=== PATIENT | female | born 1965 | race African-American/Black ===

== ENCOUNTER 2022-05-28 10:42 | Outpatient (CLI) | payer OTHER, SELFPAY ==
--- NOTE | ~2022-05-28 | US_ITS ---
EXAMINATION:US venous doppler LE LT INDICATION:Left leg swelling TECHNIQUE: Multiple grayscale, color flow and Doppler images of the left lower extremity deep venous systems were obtained and reviewed. COMPARISON:No prior studies for comparison. FINDINGS: The common femoral, superficial femoral and popliteal veins demonstrate normal respiratory variation, augmentation and compressibility. Color flow is also seen within the posterior tibial, pe roneal, greater saphenous and profunda veins. IMPRESSION: 1: No lower extremity deep venous thrombosis. Reviewed, dictated and finalized at location B.
== END 2022-05-28 10:43 | disposition home or self-care (01) ==
PROVIDERS: Visit Provider Orthopaedic Surgery
DX: R60.0 Localized edema (principal)
CPT/HCPCS: 93971

== ENCOUNTER 2022-07-28 12:02 | Outpatient (CLI) | payer OTHER, SELFPAY ==
--- NOTE | ~2022-07-28 | CT_ITS ---
Noncontrast CT scan of the right ankle CLINICAL HISTORY: Fracture TECHNIQUE: Axial noncontrast imaging of the right ankle was performed. Sagittal and coronal reformatt ed images were constructed. Dose reduction technique was used on this scan by utilizing automated exp osure control and iterative reconstruction technique. FINDINGS: There is an oblique, traumatic, minimally displaced fracture of the lateral malleolus, at a nd just proximal to level the ankle mortise. There is also an oblique, intra-articular, mildly displa sandor and mildly comminuted fracture of the lateral corner of the distal tibial plafond (coronal image 60, axial image 34 for example). This fracture fragment is displaced by approximately 6 mm. No other fracture identified. Alignment at the ankle mortise is essentially anatomic. Remaining visua lized joint spaces are also unremarkable. There is subcutaneous soft tissue edema about the ankle. No fluid collection or soft tissue mass evid ent. IMPRESSION: Oblique, traumatic, minimally displaced fracture of the lateral malleolus, as detailed above. Oblique, intra-articular, mildly displaced and comminuted fracture of the lateral corner of the dista l tibial plafond, as detailed above. Reviewed, dictated and finalized at location M. CIANRY TEACHER IMPRESSION: Oblique, traumatic, minimally displaced fracture of the lateral malleolus, as d etailed above. Oblique, intra-articular, mildly displaced and comminuted fracture of the later al corner of the distal tibial plafond, as detailed above.
== END 2022-07-28 12:03 | disposition home or self-care (01) ==
PROVIDERS: Visit Provider Orthopaedic Surgery
DX: S82.61XA Displaced fracture of lateral malleolus of right fibula, initial encounter for closed fracture (principal); S82.391A Other fracture of lower end of right tibia, initial encounter for closed fracture
CPT/HCPCS: 73700

== ENCOUNTER 2022-07-28 12:53 | Outpatient (CLI) | payer OTHER, SELFPAY ==
[2022-07-28 14:24] LABS: Hematocrit 41.9 % (37.0-47.0); Hemoglobin 13.4 g/dL (12.0-15.0)
== END 2022-07-28 12:54 | disposition home or self-care (01) ==
PROVIDERS: Anesthesiology; Visit Provider Orthopaedic Surgery
DX: S82.891A Other fracture of right lower leg, initial encounter for closed fracture (principal); D64.9 Anemia, unspecified
CPT/HCPCS: 36415; 85014; 85018; 87081

== ENCOUNTER 2022-07-30 02:29 | Day surgery (SDC) | payer OTHER, SELFPAY ==
--- NOTE | 2022-07-28 11:53 | P.HP_ITS ---
H&P: HPI History of Present Illness Date/Time: 07/28/22 11:53 Chief Complaint: Right ankle fracture Narrative: 56-year-old female who presents today for ORIF of her right ankle fracture. Patient fell at home when she became dizzy. She did not lose consciousness. She fell and had immediate pain in the ankle. She went to emergency room and had x-rays done on 07/19. They showed a mildly displaced South B fracture as well as a displaced fracture of Chaputs tubercle. Patient was seen in the office on 07/28, stress view was done of the ankle which shows significant widening of the medial clear space. Due to the widening this is an unstable fracture and it was recommended she undergo ORIF of the ankle and presents today for that. Review of Systems Review of Systems: All systems reviewed & are unremarkable except as noted in HPI and below Exam Narrative: 56-year-old female alert pleasant. She 5 ft 5 and 267 lb her BMI is 44.4. She has mild diffuse swelling around the ankle with mild pedal edema. Skin is all intact without blistering or ecchymosis visible. Moderate tenderness over the anterior medial tip of the medial malleolus moderate tenderness over the lateral malleolus. Moderately severe tenderness over the anterior lateral ankle. 2+ dorsalis pedis pulse. Denies any numbness or tingling in the foot or ankle. Resp: Auscultation: clear to auscultation bilaterally Cardio: Rate: regular rate Rhythm: regular rhythm Assessment and Plan Assessment and plan (1) Closed right ankle fracture: Code(s): S82.891A - Other fracture of right lower leg, initial encounter for closed fra cture Status: Acute Plan 56-year-old female who has an unstable right ankle fracture. Again he was recommended this be treated with ORIF given the instability. We are going to obtain CT scan for additional evaluation of the ankle prior to surgery. Due to the fact that she had an episode of dizziness which contributed to her fall we will work on getting a cardiac evaluation, she does have a history of PACs and PVCs in the past. Patient is also history of a DVT in 2020 at which time she had a PICC line and was being treated for breast cancer with chemotherapy. She has had no recurrence of DVT. However we will have her on Eliquis 2.5 mg b.i.d. for 6 weeks for DVT prophylaxis because of this history. Surgical procedure as well as risk complications were discussed in detail questions were answered and will proceed. We will plan to keep patient overnight for cardiac monitoring due to her previous history.
[2022-07-28 12:38] VITALS: BP 134/79; PULSE 97; RESP 18; TEMP 36.3; O2SAT 96
--- NOTE | 2022-07-28 12:47 | PC.NURSE ---
Report to the Outpatient Waiting Room, entrance under the green pavilion located off [facility], at time _1030_ on date _[id number]_. Planned Procedure Time: _1230_. Time changes happen often and if your time is changed the preop area will call you the afternoon before. - You and your visitor will be asked to self-screen and do not enter if you have any COVID symptoms. - Only one visitor is requested with a max of two and NO children visitors are allowed at this time. - The patient visitor may be requested to leave or wait in car when not with patient due to distancing restrictions. - A mask is optional within the hospital. Patients may have clear liquids (water, carbonated beverages, clear teas, apple juice) until 3 hours prior to surgery with a maximum of 20 ounces. - No food from midnight until time of surgery Take the following medications with a SIP of water the morning of surgery: __None Medications to discontinue per physician Vitamin C and D3 Date to take last dose___Stop now. Stopped Naproxen 07-24-2022_ Please no make-up, nail bermudian, hairspray, perfume, deodorant, or body powder the day of surgery. No jewelry (including any body piercings) or valuables the day of surgery, leave them at home. Please take a shower or bath the night before, or the morning of, surgery with an antibacterial soap. Wear comfortable, loose fitting clothing. - Jewelry must be removed prior to entering the operating room. Rings and piercings that are not removed may be cut off. - The hospital will not accept responsibility for valuables. - Please leave all valuables, including medications, at home the day of surgery. If you are going home after surgery, a licensed bulk driver must drive you home. - NO public transportation without another adult if you receive anesthesia. - We recommend that an adult stay with you for 24 hours following discharge. - We also recommend that you do not drive, make important decision, drink alcoholic beverages, or take any drugs that were not prescribed by your health care provider for at least 24 hours after your discharge time. Follow any additional instructions given to you from your surgeon. If you or anyone in your household have experienced Covid symptoms in the past week, please notify your surgeon or the nurse liaison at the phone number below for possible testing. Telephone instructions given to _Patient__and asked if any additional questions and then verbalized understanding. Patient advised to call surgeon office or pre surgery nurse liaison [phone] if any additional questions.
[2022-07-28 13:19] VITALS: BMI 41.0
--- NOTE | 2022-07-29 10:53 | SUR.PREOP ---
This interview was done in person not over the phone.
[2022-07-30] VITALS (18 sets, daily range): BP systolic 108–152; BP diastolic 69–98; PULSE 81–109; RESP 12–20; TEMP 36.1–37.6; O2SAT 95–99
--- NOTE | ~2022-07-30 | XR_ITS ---
EXAMINATION: XR surgery orthopedic DATE: 07/30/2022 14:49 INDICATION: ORIF right ankle fracture TECHNIQUE: 6 fluoroscopic images of the right ankle were obtained during procedure performed by Dr. Jenelle reeder. Radiologist was not present for the imaging or procedure. The amount of fluoroscopy time used during this procedure was 0.5 minutes. COMPARISON: CT dated 07/28/2022 FINDINGS: Initial image again demonstrates an oblique South type B fracture of the distal left fibula with one- 2 mm cortical widths lateral displacement. Corresponding minimal widening of the medial clear space. The fracture involving the anterolateral corner of the tibial plafond does not clearly visualized on the frontal projection. Subsequent images demonstrate open reduction internal fixation with interfrag mentary screw and lateral plate and screw fixation of the fibular fracture and fixation of the fractu re at the anterolateral tibial plafond and with a pair of small screws. Alignment post fixation appea rs near-anatomic including a congruent ankle mortise with reduction of the previously mild widening o f the medial clear space. No new fractures identified. Profiled joint spaces are normal. IMPRESSION: 1. Near-anatomic alignment post open reduction and internal fixation of an oblique fracture of the la teral malleolus and small fracture at the anterolateral tibial plafond. Reviewed, dictated and finalized at location A. MACY TECH IMPRESSION: 1. Near-anatomic alignment post open reduction and internal fixation of an obli que fracture of the lateral malleolus and small fracture at the anterolateral t ibial plafond.
--- NOTE | 2022-07-30 10:45 | WPDANESEPPF ---
Anes - Initial Pre Proc Eval Procedure: Operation Date: 07/30/22 12:30 Proposed Procedures p Open Reduction Internal Fixation Right Lateral Malleolous Fracture, Open Reduction Internal Fixation Chaputs Fracture Right Tibia - Ilan Maat MD Date/Time: 07/30/22 10:45 Surgeon: Ilan Mata MD Pre Op Diagnosis: right lateral malleolous fx, chaputs tubercle rt Patient Data Age: 56 Gender: F Height: 1.66 m Weight: 120 kg Last Vital Signs Temp 36.3 C L 07/28/22 12:38 Pulse 97 07/28/22 12:38 Resp 18 07/28/22 12:38 BP 134/79 07/28/22 12:38 Pulse Ox 96 07/28/22 12:38 O2 Del Method Room Air 07/28/22 12:38 Allergies Allergy/AdvReac Type Severity Reaction Status Date / Time amoxicillin [From Augmentin] Allergy Severe Other Verified 07/28/22 13:11 clavulanic acid Allergy Severe Other Verified 07/28/22 13:11 [From Augmentin] hydrocodone AdvReac Nausea and Verified 07/28/22 13:11 Vomiting Home Medications Medication Instructions Recorded Confirmed Type ascorbic acid (vitamin C) 500 mg 500 mg PO DAILY 07/28/22 07/28/22 History tablet (Vitamin C) cholecalciferol (vitamin D3) 50 50 mcg PO DAILY 07/28/22 07/28/22 History mcg (2,000 unit) tablet cyclobenzaprine 5 mg tablet 5 mg PO DAILY PRN Pain, Mild 07/28/22 07/28/22 History fluticasone furoate 100 1 inh inhalation DAILY 07/28/22 07/28/22 History mcg-vilanterol 25 mcg/dose inhalation powder (Breo Ellipta) metoprolol succinate 25 mg 25 mg PO HS 07/28/22 07/28/22 History tablet,extended release 24 hr naproxen 500 mg tablet 500 mg PO BID PRN Pain 07/28/22 07/28/22 History pantoprazole 20 mg tablet,delayed 20 mg PO QAM 07/28/22 07/28/22 History release Patient hx anesthesia problems: post op nausea/vomiting Family hx anesthesia problems: none Results Review: All pre-operative results and documents have been reviewed as part of the pre-operative evaluation. [facility] Past Medical History Medical History (Updated 07/29/22 @ 09:04 by Nba Rodriguez DO) Anxiety Asthma JASMEET (obstructive sleep apnea) no CPAP PONV (postoperative nausea and vomiting) Social History Social History Smoking status: Never smoker Living arrangements: with family Spiritual care concerns: No Anes - Eval Final PreProcedure Day of Procedure 07/30/22 10:45 Patient weight: morbidly obese Heart: regular rate and rhythm Lungs: clear to auscultation Airway: Mallampati scale class II Neurological: alert and oriented Last oral intake: >/= 8 hours ASA classification: III Emergent: no Anesthetic plan: proceed Anesthesia type and monitoring: general LMA and standard monitoring Results Review: All pre-operative results and documents have been reviewed as part of the pre-operative evaluation. Informed Consent: The patient's anesthetic plan and its attendant risks and benefits were discussed with the patient/family/POA. Questions were solicited and answers provided to the satisfaction of the patient/family/POA.
[2022-07-30] MEDS: ACETAMINOPHEN 500 MG TABLET 1000 MG PO ×3 (11:00→23:08)
[2022-07-30] MEDS: KETOROLAC 15 MG/ML VIAL (*BKC) IV PUSH ×2 (11:20→20:37)
[2022-07-30] MEDS: LACTATED RINGERS 1,000 ML 30 ML IV CONT ×2 (11:20→15:25)
[2022-07-30] MEDS: SCOPOLAMINE 1.5 MG PATCH TRANSDERM (11:35)
[2022-07-30] MEDS: fentaNYL CITRATE INJ (*CRX) 250 MCG/5 ML VIAL 25 MCG IV PUSH ×4 (11:46→17:30)
--- NOTE | 2022-07-30 12:34 | WPDHPUPDATE1 ---
History and Physical Update Update Date/Time: 07/30/22 12:34 History and Physical has been reviewed, including an updated exam of the patient. There are NO changes in the patient's condition.Echocardiogram showed no findings to contraindicate surgery Risks, benefits, and alternatives have been discussed and questions answered. Patient agrees to proceed with procedure.
[2022-07-30] MEDS: ceFAZolin 3 GM/D5W 100 ML 100 ML IVPB (13:07)
[2022-07-30] MEDS: ceFAZolin SODIUM 1 GM VIAL (13:37)
--- NOTE | 2022-07-30 14:50 | W.PM.PROC2 ---
Procedure Note - Detailed Date of Procedure 07/30/22 Pre-op Diagnosis right lateral malleolous fx, chaputs tubercle rt Post-op Diagnosis Same Procedure Performed Open reduction internal fixation of right lateral malleolus fracture and Chaput's tubercle anterolateral distal tibia Surgeon Ilan Mata MD Mail [employer] Clerk Roxie Lin Anesthesia General Description of Procedure Patient was brought to the operating room and general anesthesia was administered. She received weight based vancomycin and 3 g of Ancef preoperatively. A bump was placed under the right buttock and a roll of blankets under the right knee in the right ankle was prepped and draped in usual fashion. Prior to positioning we did a thorough chlorhexidine cloth Jose prep scrub of the foot and lower leg. With prep with DuraPrep all the skin was covered with Ioban. Limb was exsanguinated tourniquet elevated to 300 mmHg. A 4 in longitudinal incision was made which we curved slightly anteriorly distally. We dissected down through the subcutaneous fat constantly looking for branches of superficial branch of peroneal nerve and we did identify a main trunk that was traveling with the anterior subcutaneous fat flap. The fracture was exposed and then we carefully elevated the subcutaneous fat layer anteriorly over the displaced fracture of the anterolateral tibial tubercle. (Chaputs). Distal 1 cm of the extensor retinaculum was incised and extensor tendons retracted medially which exposed the displaced tubercle fragment. We found a tiny comminuted piece which removed and then a more significant comminuted piece which removed carefully removed entrapped soft tissue and expose the fracture edges both on the fragment side and the anterolateral distal tibia side. We then moved back to the lateral malleolus fracture fracture surfaces thoroughly exposed and the fracture gap cleaned of adherent organizing fracture hematoma and then an anatomic reduction was achieved and held with 2 towel clips style bone reduction forceps. A 2.7 mm interfragmentary screw was placed from anterior to posterior through the glide hole. This allowed 1 of the clamps to be removed. A 6 hole 1/3 tubular Arthrex locking plate was carefully contoured and placed over the lateral aspect of the distal fibular shaft and lateral malleolus. The sit nicely. A cortical screw was placed through the hole just proximal to the fracture site which compress the plate well to the contour of the lateral surface of the distal fibular shaft and lateral malleolus and there is no displacement the fracture site. Two distal locking screws were placed and then 2 proximal locking screws were placed with the hole in the plate over the interfragmentary screw open. We took a lateral view could see the interfragmentary screw was about 2 mm too long and was changed out for shorter screw which also obtained excellent purchase. Next we revisited the Chaput's with anushka. We were able to achieve an anatomic reduction visualized directly and the fragment was held in place with 2 dental picks a 1.1 mm guidewire was inserted across the fracture site and we took a fluoroscopic picture confirmed it was in proper position. We then made a 2 mm hole the surface fragment posterior to the guide pin and in inserted 1.5 mm drill bit parallel to the guide pin placed a 26 mm 2.0 mm screw which obtained excellent purchase and interfragmentary compression. We removed the guidewire and over drilled the guidewire hole with a 2 mm drill past the 1.5 mm drill through that guidewire hole and placed another 26 mm x 2.0 mm screw just anterior to the 1st screw which also obtained excellent interfragmentary compression purchase. Final fluoroscopic x-rays were obtained. The medial clear space was stable to valgus stress. Was no widening of the syndesmosis. The tourniquet had been put down at approximately 65 minutes. The wound was thoroughly irrigated with antibiotic solution. The skin
--- NOTE | 2022-07-30 18:30 | ADMGEN ---
This patient, Elysia Hoffmann, was admitted to [facility]. Report received from SAMINA Calvin. Patient/family oriented to hospital policies and general routines including ID bracelet, bed and alarms, visiting hours, pain management, procedures, bathroom and other care routines, personal items, smoking policy, room service/diet, and visiting hours. Information on how to activate the Rapid Response Team has been discussed. Patient/Family are encouraged to report perceived risks to care and to ask questions if they do not understand what they are told or what they should do.
[2022-07-30] MEDS: SODIUM CHLORIDE 0.9% IV 1,000 ML 125 ML IV CONT (19:04)
[2022-07-30] MEDS: SENNA/DOCUSATE SODIUM TABLET 2 TAB PO (19:04)
[2022-07-30] MEDS: ceFAZolin 2 GM/D5W 50 ML 2 GM/50 ML BAG IVPB (20:38)
[2022-07-30] MEDS: oxyCODONE HCL (*CRX) 2.5 MG TAB IR PO (20:38)
[2022-07-30] MEDS: METOPROLOL SUCCINATE EXT REL 25 MG TABCR PO (20:39)
[2022-07-30] MEDS: FLUTICASONE/SALMETEROL 115-21 MCG INHALER 1 PUFF 2 PUFF INHALATION (20:50)
[2022-07-31] VITALS (7 sets, daily range): BP systolic 116–124; BP diastolic 62–71; PULSE 70–108; RESP 16–18; TEMP 36.1–36.6; O2SAT 94–100
[2022-07-31] MEDS: oxyCODONE HCL (*CRX) 2.5 MG TAB IR PO ×4 (00:01→13:06)
[2022-07-31] MEDS: KETOROLAC 15 MG/ML VIAL (*BKC) IV PUSH ×3 (00:01→11:47)
[2022-07-31] MEDS: ACETAMINOPHEN 500 MG TABLET 1000 MG PO ×2 (05:12→11:47)
[2022-07-31] MEDS: ceFAZolin 2 GM/D5W 50 ML 2 GM/50 ML BAG IVPB ×2 (05:13→13:41)
--- NOTE | 2022-07-31 06:57 | WPDANESPN ---
Anes - Prog Note Post-Op Date/Time: 07/31/22 06:57 Cardiovascular status: normal Respiratory status: normal Airway patency: baseline Mental status: baseline Post-Op hydration status: normal Vital Signs: Last Vital Signs Temp 97.0 F L 07/31/22 03:32 Pulse 82 07/31/22 04:00 Resp 18 07/31/22 03:32 BP 116/62 07/31/22 03:32 Pulse Ox 94 07/31/22 03:32 O2 Del Method Room Air 07/30/22 17:30 O2 Flow Rate 2 07/30/22 16:42 Pain Score (VAS): 0/10 I/O: Intake & Output 07/30/22 07/30/22 07/31/22 15:59 23:59 07:59 Intake Total 600 450 590 Output Total 600 Balance 600 450 -10 Post-procedural complaints: none Patient Feedback: Patient satisfied with anesthetic care.
[2022-07-31] MEDS: FLUTICASONE/SALMETEROL 115-21 MCG INHALER 1 PUFF 2 PUFF INHALATION (08:30)
[2022-07-31] MEDS: SENNA/DOCUSATE SODIUM TABLET 2 TAB PO (08:37)
[2022-07-31] MEDS: ASCORBIC ACID 500 MG TABLET PO (08:37)
[2022-07-31] MEDS: CHOLECALCIFEROL 1,000 UNITS TABLET 2000 UNITS PO (08:37)
[2022-07-31] MEDS: APIXABAN 2.5 MG TABLET PO (08:37)
[2022-07-31] MEDS: polyethylene glycoL 3350 17 GM POWD.PACK PO (08:38)
[2022-07-31] MEDS: PANTOPRAZOLE SOD SESQUIHYDRATE 20 MG TAB PO (08:38)
--- NOTE | 2022-07-31 12:22 | PM.DS ---
DS: Admitting Diagnosis Discharge Date 07/31/2022 Admitting Diagnosis Right lateral malleolus fracture and fracture of Chaputs tubercle right distal tibia. DS: Discharge Diagnosis Discharge Diagnosis Plan Patient had open reduction internal fixation of both fractures on 07/30/2022 and has had uneventful postoperative course. She is to be discharged today. She will take Eliquis for DVT prophylaxis because of her extreme obesity BMI of 43.4. DS: Summary Hospital Course Hospital Course: Her hospital course was uneventful. She has been quite comfortable. She tolerated the 2.5 mg oxycodone without nausea. Her Eliquis was started this morning. She has been able to maintain strict nonweightbearing for transfers bed to chair to commode with therapy this morning. She has a bedside commode at home currently. She has intact sensation in the toes in top of the foot. She is to be discharged home today. Time Spent with Patient Time attestation: Total time spent providing and/or coordinating discharge services: Discharge Plan Discharge Patient Disposition: Home, Self-Care Discharge Instructions: Remove the Scopolamine patch that was placed behind your left ear in 72 hours or less. Wash your hands after touching. Maintain strict nonweightbearing right leg for transfers. Keep the leg elevated above her chest whenever possible. Avoid sitting in the chair except for meals and use of the commode. Do not take any aspirin or a prox and or any nonsteroidal anti-inflammatory medications while on the Eliquis. If he develops significant swelling in the right leg that may be a sign of a blood clot which can cause a fatal pulmonary embolism. If significant swelling occurs contact the office immediately or go to the emergency room to have an ultrasound performed. I would recommend that she take calcium and vitamin-D for life. At surgery I felt her bone density was diminished and it will be necessary to obtain a bone density scan which will measure quantitatively here bone density. Please call us and ask Sera to schedule that to evaluate for osteoporosis. Take the calcium 1 pill twice daily for life. Patient Instructions: Apixaban (By mouth), Pain Management (DC), Safe Use of Anticoagulants (GEN), Blood Thinners (GEN) Stand Alone Forms: General Discharge Instructions Follow-up/Referrals: Ilan Mata MD [Physician] - Discharge Medications: New Eliquis 2.5 mg Tablet 2.5 mg PO Q12HR Qty: 1 0RF polyethylene glycol 3350 [Miralax] 17 gram Powder In Packet 17 g PO QAM Qty: 30 0RF sennosides-docusate sodium [Senokot-S] 8.6-50 mg Tablet 2 tab PO BID Qty: 120 0RF acetaminophen 500 mg Tablet 1,000 mg PO Q6HR Qty: 100 0RF cyclobenzaprine 5 mg tablet 5 mg PO TID PRN (Reason: muscle spasm) Qty: 60 0RF oxycodone 5 mg tablet 2.5 mg PO Q4H PRN (Reason: pain) Qty: 40 0RF calcium carbonate [Calcium 500] 500 mg calcium (1,250 mg) tablet,chewable 500 mg PO BID Qty: 120 0RF Continued pantoprazole 20 mg Tablet,Delayed Release (Dr/Ec) 20 mg PO QAM ascorbic acid (vitamin C) [Vitamin C] 500 mg Tablet 500 mg PO DAILY metoprolol succinate 25 mg tablet extended release 24 hr 25 mg PO HS cyclobenzaprine 5 mg tablet 5 mg PO DAILY PRN (Reason: Pain, Mild) cholecalciferol (vitamin D3) 50 mcg (2,000 unit) tablet 50 mcg PO DAILY fluticasone furoate-vilanterol [Breo Ellipta] 100-25 mcg/dose Blister With Device 1 inh INHALATION DAILY Discontinued naproxen 500 mg tablet 500 mg PO BID PRN (Reason: Pain)
== END 2022-07-31 14:45 | disposition home or self-care (01) ==
LOC: ANHSURGERY 11:36 → ANH2MED 19:22
PROVIDERS: Visit Provider Orthopaedic Surgery
PROC: (CPT 27828; principal; 2022-07-30 12:30)
DX: S82.61XA Displaced fracture of lateral malleolus of right fibula, initial encounter for closed fracture (principal); S82.391A Other fracture of lower end of right tibia, initial encounter for closed fracture; W19.XXXA Unspecified fall, initial encounter; G47.33 Obstructive sleep apnea (adult) (pediatric); J45.909 Unspecified asthma, uncomplicated; Z79.51 Long term (current) use of inhaled steroids; E66.01 Morbid (severe) obesity due to excess calories; Z68.41 Body mass index [BMI] 40.0-44.9, adult
CPT/HCPCS: 27828; 94640; 97161; 99199; A9270; C1713; J0690; J1100; J1170; J1885; J2250; J2405; J2704; J2710; J3010; J3370; J7030; J7120

== ENCOUNTER 2022-11-29 07:55 | Outpatient (CLI) | payer OTHER, SELFPAY ==
--- NOTE | ~2022-11-29 | DEXA_ITS ---
Bone Density Report Name: DAMASO MARTINO Age: 57 Sex: Female Ethnicity: Black Date of : 1965 Indication: postmenopausal; screening for osteoporosis; cancer; asthma or emphysema; hysterectomy; Referring Provider: RADHA MARIE Study: Bone densitometry was performed. Exam Date: November 29, 2022 Accession number: [id number] Bone Density: Region BMD T-score Z-score Classification AP Spine(L1-L4) 1.158 1.0 1.6 Normal Femoral Neck (Left) 0.994 1.3 1.3 Normal Total Hip (Left) 1.016 0.6 0.6 Normal Femoral Neck (Right) 0.864 0.1 0.4 Normal Total Hip (Right) 0.976 0.3 0.4 Normal Total Hip Mean 0.996 0.5 0.5 Normal World Health Organization criteria for BMD impression classify patients as: Normal (T-score at or above -1.0), Osteopenia (T-score between -1.0 and -2.5), or Osteoporosis (T-score at or below -2.5). 10-year Fracture Risk: FRAX not reported because: All T-scores for Spine Total, Hip Total, Femoral Neck at or above -1.0 Clinical Information Provided by Patient: Has used the following medications: Vitamin D, Calcium Has the following medical conditions: Asthma or Emphysema, Cancer, Hysterectomy Patient maximum height was 65.5 Menopause Age: 40 No regular weight bearing exercise Does not regularly consume dairy products Onset of menses at age 13 Number of children 2 Impression: The patient has normal bone mass. Discussion: BONE DENSITY IS ABOVE THE MINIMUM DESIRABLE LEVEL AT ALL SKELETAL SITES TESTED. This patient?s bone mineral density is above the minimum desirable level (T-score -1.0 or better) at all sites measured. The patient should follow a healthful lifestyle (good nutrition with adequate calcium and vitamin D, and appropriate weight-bearing exercise). Follow-Up: Consider repeating this study in 5 years or sooner if there is some new clinical indication. Reported by: [facility] on 11/29/2022 8:45:00 AM. Reviewed, dictated and finalized at location ACricket [id number]
== END 2022-11-29 07:56 | disposition home or self-care (01) ==
PROVIDERS: Visit Provider Orthopaedic Surgery
DX: M81.0 Age-related osteoporosis without current pathological fracture (principal)
CPT/HCPCS: 77080

== ENCOUNTER 2023-12-08 11:37 | Outpatient (CLI) | payer OTHER, SELFPAY ==
[2023-12-08 11:56] LABS: Basophils Percent Auto 0.9 % (0.2-1.2); Eosinophils Absolute Auto 0.1 K/mm3 (0-0.3); Hematocrit 40.4 % (37.0-47.0); Hemoglobin 13.1 g/dL (12.0-15.0); Immature Granulocyte Absolute 0.01 K/mm3 (0.00-0.031); Immature Granulocyte Percent A 0.2 % (0-0.5); Lymphocytes Absolute Auto 1.86 K/mm3 (0.9-3.2); Lymphocytes Percent Auto 39.7 % (18.3-44.2); Mean Corpuscular HGB Conc 32.4 g/dl (32-36); Mean Corpuscular Hemoglobin 29.5 pg (26-34); Mean Platelet Volume 8.6 fl (7.4-10.4); Monocytes Absolute Auto 0.4 K/mm3 (0.1-0.6); Monocytes Percent Auto 8.1 % (2.6-8.5); Neutrophils Absolute Auto 2.3 K/mm3 (1.3-6.7); Neutrophils Percent Auto 48.1 % (45.5-73.1); Platelet Count Result 226 k/mm3 (150-375); Red Blood Count 4.44 M/mm3 (4.2-5.4); Red Cell Distribution Width 12.5 % (11.5-14.5); White Blood Count 4.7 K/mm3 (4.5-10.0)
[2023-12-08 12:51] LABS: Erythrocyte Sedimentation Rate 24 mm/hr (0-20)
[2023-12-09 12:23] LABS: CRP, High Sensitivity 1.4 mg/L
== END 2023-12-08 11:38 | disposition home or self-care (01) ==
LOC: ANHLAB 11:38
PROVIDERS: Visit Provider Orthopaedic Surgery
DX: M25.562 Pain in left knee (principal)
CPT/HCPCS: 36415; 85025; 85652; 86141

== ENCOUNTER 2023-12-09 09:49 | Outpatient (CLI) | payer OTHER, SELFPAY ==
--- NOTE | ~2023-12-09 | US_ITS ---
EXAMINATION: [facility] DATE: 12/09/2023 10:59 INDICATION: Left knee pain. TECHNIQUE: Multiple grayscale ultrasound images of the left knee were obtained. COMPARISON: Left knee radiographs 11/30/2023 FINDINGS: There is no visible left knee joint effusion. The radiographs from 11/30/2023 similarly show no effusion. IMPRESSION: 1. No left knee joint effusion. The knee joint aspiration was canceled. Reviewed, dictated and finalized at location A.
[2023-12-09 10:33] LABS: CRP < 0.5 mg/dL (<1.0)
== END 2023-12-09 09:50 | disposition home or self-care (01) ==
LOC: ANHIMG 09:51
PROVIDERS: Visit Provider Orthopaedic Surgery
DX: M17.12 Unilateral primary osteoarthritis, left knee (principal)
CPT/HCPCS: 36415; 76882; 86140